=== PATIENT | female | born 1990 | race Caucasian/White ===

== ENCOUNTER 2025-04-17 13:41 | Emergency (ER) | payer OTHER, SELFPAY ==
[2025-04-17 13:59] VITALS: BP 175/97; PULSE 93; RESP 20; TEMP 37.1; O2SAT 99; BMI 65.2
--- NOTE | 2025-04-17 14:29 | CRLHL7_ITS ---
For Patients: As a result of the Century Cures Act, medical imaging exams and procedure reports are released immediately into your electronic medical record. You may view this report before your referring provider. If you have questions, please contact your health care provider. INDICATION: Trauma. TECHNIQUE: CT head without contrast. COMPARISON: 07/03/2016 FINDINGS: Examination is limited by artifact. The right anterior frontal scalp hematoma seen. There is artifact obscuring the anterior frontal lobes bilaterally. No definite evidence of intracranial hemorrhage. There is grossly normal ervin-white differentiation. Sulci are present. No hydrocephalus is seen. No displaced calvarial fracture seen. IMPRESSION: 1. Right anterior frontal scalp hematoma. Artifact partially obscures the anterior frontal lobes with no definite acute intracranial abnormality. Please note that all CT scans at this facility use dose modulation, iterative reconstruction, and/or weight-based dosing when appropriate to reduce radiation dose to as low as reasonably achievable. Dictated by Kenn Kamara MD @ 04/17/2025 3:21:52 PM (Electronically Signed)
--- NOTE | 2025-04-17 14:29 | CRLHL7_ITS ---
For Patients: As a result of the Cures Act, medical imaging exams and procedure reports are released immediately into your electronic medical record. You may view this report before your referring provider. If you have questions, please contact your health care provider. INDICATION: Facial trauma. TECHNIQUE: CT maxillofacial without contrast. COMPARISON: None. FINDINGS: No fracture seen. Right anterior frontal scalp hematoma is seen. There is mild right preseptal swelling. Motion obscures the globes. The globes are symmetric bilaterally. The intra and extraconal fat appears to be preserved. The mastoids and sinuses are well aerated. IMPRESSION: 1. Right anterior frontal scalp hematoma with mild right preseptal swelling. No facial fracture is seen. Please note that all CT scans at this facility use dose modulation, iterative reconstruction, and/or weight-based dosing when appropriate to reduce radiation dose to as low as reasonably achievable. Dictated by Kenn Kamara MD @ 04/17/2025 3:29:33 PM (Electronically Signed)
--- NOTE | 2025-04-17 14:56 | ED_ITS ---
HPI - General Adult General Chief complaint: Fall/Minor Trauma Stated complaint: fell and hit head Time Seen by Provider: 04/17/25 14:19 Source: patient Mode of arrival: ambulatory History of Present Illness HPI narrative: 35-year-old female presents the emergency department about an hour after she slipped on the ice, shoveling her grandmother's driveway. This was her 2nd fall in 2 days. She reports landing on her right face and is experiencing headache, nausea and dizziness. She is not anticoagulated. She notes no focal neurological deficits. 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 Currently her right eye has an area of swelling and tenderness on the upper orbital rim. No breathing difficulty, no difficulty moving her extremities. No back pain, weakness, numbness or tingling. No difficulty swallowing or neck pain. No other areas of pain besides the right base. She reports that she has had concussions before but no prior cranial surgery or stroke. No facial surgeries. She denies any presyncopal or prodromal symptoms prior to the fall. She has been feeling well. There is no fever. No new medications, no recent illness. Has not tried taking any medications to help with her symptoms. Reports benign past medical history, no major long-term health problems. No allergies, no medications. ROS is notable for facial tenderness, swelling and the generalized symptoms as above, otherwise denies times 12 systems. Related Data Home Medications ?Medication ?Instructions ?Recorded ?Confirmed No Known Home Medications 04/17/2503/30 Allergies Allergy/AdvReac Type Severity Reaction Status Date / Time No Known Drug Allergies Allergy Verified 04/17/25 14:05 Exam Const: Vital Signs, click to edit/add: Vital Signs - 24 hr 04/17/25 13:59 04/17/25 16:01 Temperature 98.8 F Pulse Rate [Pulse Oximeter] 93 86 Respiratory Rate 20 18 Blood Pressure [Ri ght Upper Arm] 175/97 H 150/81 H Pulse Oximetry 99 99 Oxygen Delivery Me thod Room Air Documenting provider has reviewed patient's vital signs: yes Common normals: no apparent distress and alert General appearance: cooperative, comfortable and well kempt HENMT: Other: Top of the head and scalp appear normal. The right frontal area just above the right superior orbital rim has slight abrasion but moderate swelling, about the size of a half dollar. Jaw opens and closes normally. Nose and remaining facial bones appear grossly normal and are nontender to the touch. No other areas of open or broken skin. Both ears have normal TMs, normal pinna. Nares are patent bilaterally. Oropharynx with acyanotic lips, moist membranes. No signs of tongue biting or dental injury. Eye: Other: The left eye shows a reactive pupil but very slow and sluggish, patient reports that she has no vision in that eye. The right eye does appear normal to reactivity and accommodation. The extraocular movements are appropriate on the right. Neck & C-Spine: Common normals: full ROM, no lymphadenopathy and no meningeal signs General: normal visual inspection Resp: Common normals: normal respiratory effort, no use of accessory muscles and clear to auscultation bilaterally Effort & inspection: able to speak in complete sentences Auscultation: clear to auscultation bilaterally Cardio: Common normals: regular rate, regular rhythm, S1 normal heart sound, S2 normal heart sound and no murmurs Rate: regular rate Rhythm: regular rhythm Heart sounds: S1 normal and S2 normal GI: Common normals: Normal to inspection, nondistended, normoactive bowel sounds present, soft to palpation, non-tender, no hepatosplenomegaly and no masses Palpation: soft and no hepatosplenomegaly Back & Pelvis: Other: Mild tenderness to the paraspinal muscles around T12 but no point bony tenderness. Right is greater the left. Extremity: Common normals: normal to inspection and normal capillary refill Neuro: Common normals: CN's II-XII intact bilaterally, moves all extremities and no focal motor deficits Sensorium/orientation: alert Meningeal signs: no meningeal signs Cranial nerves: CN normal except as noted Speech: speech normal Gait (neuro): normal gait ( Observed ambulating back from CT) Motor exam: strength 5/5 throughout Psych: Common normals: speech normal Appearance: well kempt Attitude: engaged Activity/motor behavior: appropriate eye contact Speech: normal speech Mood and affect: euthymic mood Insight: insight good Judgement: judgment good Skin: Common normals: no rashes or lesions noted General skin exam: no rashes or lesions noted Course Course ED Course: 35-year-old female with fall and slipped on the ice, injury to the right frontal area with moderate hematoma or any setting in. Two falls in the last 2 days concerning for potential underlying medical etiology. Counseled patient on this. Would like a CT scan of the head and facial bones. I would also like to check some basic electrolytes, hemoglobin and an EKG. She was agreeable to this workup. Will give Zofran and ibuprofen, await findings. Reevaluation(s) Time of Reevaluation #1: 16:00 Reevaluation #1: counseled patient on findings. Head CT is and blood work are reassuring. She does have symptoms consistent with a mild concussion but with no focal neurological changes or need to pursue this further. I have recommended that we put her on light duty for the next 48 hours. Counseled on Tylenol and ibuprofen. Okay to rest. May return to light duty after 48 hours and then full duty after 4 days. Work note is given. Alarm symptoms that would warrant re- evaluation the ED including persistent vomiting, severe headache, neurological changes, confusion reviewed. Common symptoms that would be expected would be mild nausea, mild dizziness, light sensitivity and mild headache. Okay to use Tylenol and/or ibuprofen. May drive if asymptomatic but best to wait 48 hours. All questions answered, work note given. Vital Signs Vital signs: Initial Vital Signs Temperature 98.8 F 04/17/25 13:59 Temperature Source Temporal Artery Scan 04/17/25 13:59 Pulse Rate 93 04/17/25 13:59 Respiratory Rate 20 04/17/25 13:59 Blood Pressure 175/97 H 04/17/25 13:59 Blood Pressure Mean 123 H 04/17/25 13:59 Blood Pressure Position Sitting 04/17/25 13:59 Pulse Oximetry 99 04/17/25 13:59 Oxygen Delivery Method Room Air 04/17/25 13:59 Vital Signs Temperature 98.8 F 04/17/25 13:59 Pulse Rate 93 04/17/25 13:59 Respiratory Rate 20 04/17/25 13:59 Blood Pressure 175/97 H 04/17/25 13:59 Pulse Oximetry 99 04/17/25 13:59 Oxygen Delivery Method Room Air 04/17/25 13:59 Temperature 98.8 F 04/17/25 13:59 Pulse Rate 86 04/17/25 16:01 Respiratory Rate 18 04/17/25 16:01 Blood Pressure 150/81 H 04/17/25 16:01 Pulse Oximetry 99 04/17/25 16:01 Oxygen Delivery Method Room Air 04/17/25 13:59 Medications Administered Medications: Discontinued Medications Generic Name Dose Route Start Last Admin Trade Name Kristian PRN Reason Stop Dose Admin Ibuprofen 600 mg 04/17/25 14:32 04/17/25 15:03 Ibuprofen 200 Mg Tablet PO 04/17/25 14:33 600 mg ONCE ONE Administration Ondansetron HCl 4 mg 04/17/25 14:32 04/17/25 15:03 Ondansetron Odt 4 Mg Tab PO 04/17/25 14:33 4 mg ONCE ONE Administration Medical Decision Making Lab Data Lab results reviewed: Yes I reviewed the patient's lab results Labs: Lab Results 04/17/25 Range/Units 15:00 WBC 13.84 H (4.50-11.00) K/uL RBC 5.04 (4.00-5.20) m/uL Hgb 13.4 (12.0-16.0) gm/dL Hct 44.1 (33.0-51.0) % MCV 88 (80-100) fL MCH 27 (26-34) pg MCHC 30 L (32-36) gm/dL RDW Coeff of Greg 14.4 (11.5-15.5) % Plt Count 337 (140-440) K/uL Neut % (Auto) 80.4 H (42.0-72.0) % Lymph % (Auto) 14.0 L (20-44) % [place] % (Auto) 4.5 (0.0-11.0) % Eos % (Auto) 0.7 (0.0-7.0) % Baso % (Auto) 0.2 (0.0-3.0) % Neut # (Auto) 11.10 H (1.7-7.0) K/uL Lymph # (Auto) 1.90 (0.90-2.90) K/uL [place] # (Auto) 0.60 (0.00-0.90) K/UL Eos # (Auto) 0.10 (0.00-0.50) K/uL Baso # (Auto) 0.00 (0.00-0.30) K/uL Abs Immat Gran (auto) 0.00 (0.00-0.30) K/uL Imm/Tot Granulo (auto) 0.2 % Sodium 138 (135-149) mmol/L Potassium 3.6 (3.6-5.1) mmol/L Chloride 103 (96-114) mmol/L Carbon Dioxide 22 (20-32) mmol/L Anion Gap 13 (7-15) mEq/L BUN 16 (5-24) mg/dL Creatinine 0.6 (0.5-1.5) mg/dL Estimated Creat Clear 115.16 Estimated GFR 121 ml/min Glucose 88 (60-115) mg/dL Lactate 1.7 (0.5-1.9) mmol/L Calcium 8.7 (8.4-10.6) mg/dL Total Bilirubin 0.6 (0.1-1.5) mg/dL AST 24 (12-35) U/L ALT 27 (4-35) U/L Alkaline Phosphatase 102 (40-150) U/L C-Reactive Protein 2.3 H (0.5-1.0) mg/dL Total Protein 8.2 (6.0-8.3) g/dL Albumin 4.4 (3.3-5.0) g/dL Imaging Data Noncontrast head CT: Attestation: I have reviewed the pertinent imaging results. My impression: no intracranial hemorrhage or skull fracture. Normal head CT Radiologist's impression: IMPRESSION: 1. Right anterior frontal scalp hematoma. Artifact partially obscures the anterior frontal lobes with no definite acute intracranial abnormality. Please note that all CT scans at this facility use dose modulation, iterative reconstruction, and/or weight-based dosing when appropriate to reduce radiation dose to as low as reasonably achievable. Dictated by Kenn Kamara MD @ 04/17/2025 3:21:[address] facial bones: Attestation: I have reviewed the pertinent imaging results. My impression: other than the hematoma, no signs of facial fractures Radiologist's impression: IMPRESSION: 1. Right anterior frontal scalp hematoma with mild right preseptal swelling. No facial fracture is seen. Please note that all CT scans at this facility use dose modulation, iterative reconstruction, and/or weight-based dosing when appropriate to reduce radiation dose to as low as reasonably achievable. Dictated by Kenn Kamara MD @ 04/17/2025 3:29:33 PM ECG Data Attestation: I personally reviewed and interpreted this ECG as follows: Prior ECG tracings: not available for review Interpretation: sinus rhythm with a rate of 100. Intervals and axis seem normal. She does have of incomplete right bundle-branch block. Two hundred thirty not appear to be any acute ST or T-wave abnormalities though. Discharge Plan Discharge Clinical Impression: Concussion without loss of consciousness, Hematoma of frontal scalp Patient Disposition: Home w/ Parent or Adult Condition: Stable Instructions: Concussion (ED) Additional Instructions: as we discussed, thankfully there are no signs of major head injury or facial fractures. I do suspect that your symptoms are related to a mild to moderate concussion. We are not seeing any signs of major electrolyte abnormalities, illness or other reasons for your falls. It is common to have headache, dizziness, fatigue, light sensitivity. I recommend rest for the next 48 hours. You may return to light duty on the 19 06 and full duty on the . Work note has been given. If you have persistent vomiting, focal neurological changes, severe headache or other alarming symptoms, please return to the emergency room. It is okay to use Tylenol 1000 mg every 6 hours and or ibuprofen 600 mg every 6 hours as needed for headache and mild discomfort. Activity Level: Light activity Discharge Diet: Regular Prescriptions: No Action No Known Home Medications Follow Up/Referrals: Provider,Not a Local [Primary Care Provider, Family Practice] Stand Alone Forms: Safe Communications Info Instructions
[2025-04-17] MEDS: ONDANSETRON ODT 4 MG TAB PO (15:03)
[2025-04-17] MEDS: IBUPROFEN 200 MG TABLET 600 MG PO (15:03)
[2025-04-17 15:10] LABS: Lactate* 1.7 mmol/L (0.5-1.9)
[2025-04-17 15:22] LABS: Hematocrit* 44.1 % (33.0-51.0); Hemoglobin* 13.4 gm/dL (12.0-16.0); Immature Granulocytes Pct Auto 0.2 %; Mean Corpuscular HGB Conc 30 gm/dL (32-36); Mean Corpuscular Hemoglobin 27 pg (26-34); Mean Corpuscular Volume 88 fL (80-100); RDW Coefficient of Variation % 14.4 % (11.5-15.5); Red Blood Count* 5.04 m/uL (4.00-5.20); White Blood Count* 13.84 K/uL (4.50-11.00)
[2025-04-17 15:30] LABS: Immature Granulocytes Abs Auto 0.00 K/uL (0.00-0.30); Lymphocytes Absolute Auto 1.90 K/uL (0.90-2.90)
[2025-04-17 15:33] LABS: Slide Review Reflex No
[2025-04-17 15:36] LABS: Albumin* 4.4 g/dL (3.3-5.0); Chloride* 103 mmol/L (96-114); Potassium* 3.6 mmol/L (3.6-5.1); Sodium* 138 mmol/L (135-149)
[2025-04-17 15:38] LABS: Blood Urea Nitrogen* 16 mg/dL (5-24); Creatinine* 0.6 mg/dL (0.5-1.5); Est. Creatinine Clearance* 115.16; Estimated Glomerular Filt Rate 121 ml/min
[2025-04-17 15:39] LABS: Alanine Aminotransferase* 27 U/L (4-35); Alkaline Phosphatase* 102 U/L (40-150); Anion Gap 13 mEq/L (7-15); Aspartate Amino Transferase* 24 U/L (12-35); Bilirubin Total* 0.6 mg/dL (0.1-1.5); Carbon Dioxide* 22 mmol/L (20-32)
[2025-04-17 15:40] LABS: Calcium* 8.7 mg/dL (8.4-10.6); Glucose* 88 mg/dL (60-115); Total Protein* 8.2 g/dL (6.0-8.3)
[2025-04-17 16:01] VITALS: BP 150/81; PULSE 86; RESP 18; O2SAT 99
== END 2025-04-17 16:02 | disposition home or self-care (01) ==
PROVIDERS: Emergency Provider Family Medicine
DX: S00.03XA Contusion of scalp, initial encounter (principal); W00.0XXA Fall on same level due to ice and snow, initial encounter; S06.0X0A Concussion without loss of consciousness, initial encounter
CPT/HCPCS: 36415; 70450; 70486; 80053; 83605; 85025; 86140; 99284; A9270